=== PATIENT | female | born 1965 | race Hispanic/Latino ===

== ENCOUNTER 2018-03-14 10:05 | Outpatient (CLI) | payer OTHER | END 2018-03-14 10:06 | disposition home or self-care (01) | LOC: BICMAMMO 10:05 | PROVIDERS: ATTEND Nurse Practitioner Family | DX: Z12.31 Encounter for screening mammogram for malignant neoplasm of breast (principal) | CPT/HCPCS: 77063; 77067 ==

== ENCOUNTER 2018-08-23 12:01 | Outpatient (CLI) | payer OTHER | END 2018-08-23 12:02 | disposition home or self-care (01) | LOC: ULT 12:01 | PROVIDERS: ATTEND Family Medicine | DX: R06.01 Orthopnea (principal); I08.1 Rheumatic disorders of both mitral and tricuspid valves | CPT/HCPCS: 93306 ==

== ENCOUNTER 2018-09-04 09:17 | Day surgery (SDC) | payer OTHER ==
[2018-09-03 15:43] VITALS: BMI 46.0
--- NOTE | 2018-09-03 20:51 | HP ---
HISTORY OF PRESENT ILLNESS: This is a 53-year-old female who comes in for EGD and colonoscopy. The patient had a gastric cyst surgery about 5 years ago and lost about 100 pounds. Recently, she has been gaining the weight back again. She complains of change in bowel habits, thin pencil like stools. No hematochezia. She also complains of epigastric discomfort, abdominal bloating, and abdominal swelling. She is s/p gastric sleeve surgery 4 years ago. The patient comes in for EGD because of the above reason and for colonoscopy because of change in bowel habits. ALLERGIES: NONE. SOCIAL HISTORY: Does not smoke or drink alcohol. PAST MEDICAL HISTORY: 1. Obesity, status post gastric sleeve surgery. 2. IBS. 3. Arthritis. PHYSICAL EXAMINATION: GENERAL: She is obese, appears comfortable. VITAL SIGNS: Pulse is 70, blood pressure 130/70. HEENT: Conjunctivae clear. CARDIOVASCULAR: First and second heart sounds heard. LUNGS: Clear to auscultation. ABDOMEN: Soft. No organomegaly. No tenderness. No masses. EXTREMITIES: Reveal no edema. ADMITTING DIAGNOSES: 1. Chronic dyspepsia, abdominal bloating, abdominal swelling. 2. Change in bowel habits. PLAN: EGD and colonoscopy. Job ID: [id number] MTDD
[2018-09-04] MEDS ORDERED: Lidocaine 1% PF 5 ML VIAL ONE (15:52)
[2018-09-04] MEDS ORDERED: PROPOFOL 200 MG/20 ML VIAL ONE (15:52)
--- NOTE | 2018-09-04 19:08 | OP ---
DATE OF PROCEDURE: 09/04/2018 OPERATIVE PROCEDURE: Colonoscopy. PREOPERATIVE DIAGNOSIS: Colon cancer screening, change in bowel habits with thin pencil like stools. POSTOPERATIVE DIAGNOSIS: Normal colonoscopy, except for small hemorrhoids. DESCRIPTION OF PROCEDURE: The patient was placed on her left lateral position and was given sedation by Anesthesia Department. A rectal exam was done before the scope was advanced into the rectum. No lesions felt on rectal exam. A Pentax video colonoscope was introduced into the rectum and advanced all the way to the cecum. The prep is very good. The mucosa appears normal throughout the colon with normal vascular pattern. The appendiceal orifice, ileocecal wall, cecum, no pathology seen. Withdrawal from the cecum, ascending colon, hepatic flexure, no pathology seen. The transverse colon, splenic flexure, descending colon, sigmoid colon, no pathology seen. Retroflexion of scope in the rectum showed small hemorrhoids. Job ID: [id number]
--- NOTE | 2018-09-04 19:54 | OP ---
DATE OF PROCEDURE: 09/04/2018 OPERATIVE PROCEDURE: Esophagogastroduodenoscopy. PREOPERATIVE DIAGNOSES: Abdominal pain, abdominal bloating, early satiety, nausea. POSTOPERATIVE DIAGNOSES: 1. Normal exam. 2. Previous gastric sleeve surgery. DESCRIPTION OF PROCEDURE: The patient was placed on her left lateral position and was given sedation by Anesthesia Department. A Pentax video gastroscope under direct vision passed down the oropharynx to the GE junction into the stomach and subsequently into the descending duodenum. The esophageal mucosa appeared normal. The GE junction, no pathology. The patient has had a previous gastric sleeve surgery. There is some bile reflux and иван in the stomach. The mucosa appeared normal. There was no pathology in the stomach to explain her abdominal bloating, nausea, and dyspepsia. The pylorus was wide open. The scope advanced from the duodenal bulb and descending duodenum, no pathology. The stomach decompressed and the scope removed. DISCHARGE PLANNING: This is a 53-year-old female came to the ED because of the chronic dyspepsia and for colonoscopy because of change in bowel habits, and colon cancer. The colonoscopy . The EGD again showed no pathology to explain patient's symptoms. DISCHARGE RECOMMENDATION: 1. The patient advised about high-fiber diet. 2. May try Metamucil once a day. 3. Will come back to clinic in 2 weeks. Job ID: [id number]
== END 2018-09-04 13:55 | disposition home or self-care (01) ==
LOC: SDC 09:17
PROVIDERS: ATTEND Internal Medicine Gastroenterology
PROC: 0DJD8ZZ Inspection of Lower Intestinal Tract, Via Natural or Artificial Opening Endoscopic (ICD-10-PCS; principal; 2018-09-04)
PROC: 0DJ08ZZ Inspection of Upper Intestinal Tract, Via Natural or Artificial Opening Endoscopic (ICD-10-PCS; principal; 2018-09-04)
DX: R19.4 Change in bowel habit (principal); K64.9 Unspecified hemorrhoids; R10.13 Epigastric pain; M19.90 Unspecified osteoarthritis, unspecified site; K58.9 Irritable bowel syndrome, unspecified; E66.9 Obesity, unspecified; Z68.42 Body mass index [BMI] 45.0-49.9, adult; Z98.84 Bariatric surgery status
CPT/HCPCS: 94640; J2001; J2704; J7620

== ENCOUNTER 2018-10-31 20:30 | Outpatient (CLI) | payer OTHER | END 2018-10-31 20:31 | disposition home or self-care (01) | LOC: SLEEPLAB 20:30 | PROVIDERS: ATTEND Family Medicine | DX: G47.33 Obstructive sleep apnea (adult) (pediatric) (principal); R51 Headache; G47.10 Hypersomnia, unspecified; G47.00 Insomnia, unspecified; E66.9 Obesity, unspecified; Z68.42 Body mass index [BMI] 45.0-49.9, adult | CPT/HCPCS: 95811 ==

== ENCOUNTER 2019-04-15 08:53 | Outpatient (CLI) | payer OTHER ==
--- NOTE | 2019-04-15 10:01 | MMO ---
Bilateral MAMMO Bilat Screen [facility]. CLINICAL HISTORY: Patient is 53 years old and is seen for screening. The patient has no family history of breast cancer. The patient has no personal history of cancer. VIEWS: The views performed were: bilateral craniocaudal with tomosynthesis and bilateral mediolateral oblique with tomosynthesis. FILMS COMPARED: The present examination has been compared to prior imaging studies performed at [facility] on 06/06/2011, 06/27/2012, 07/04/2013 and 03/14/2018. This study has been interpreted with the assistance of computer-aided detection. MAMMOGRAM FINDINGS: The breasts are almost entirely fat. There are intramammary lymph nodes seen in both breasts. There are no suspicious masses, suspicious calcifications, or new areas of architectural distortion. IMPRESSION: THERE IS NO MAMMOGRAPHIC EVIDENCE OF MALIGNANCY. A ROUTINE FOLLOW-UP MAMMOGRAM IN 1 YEAR IS RECOMMENDED. THE RESULTS OF THIS EXAM WERE SENT TO THE PATIENT. ACR BI-RADS Category 2 - Benign finding MAMMOGRAPHY NOTE: 1. A negative mammogram report should not delay a biopsy if a dominant of clinically suspicious mass is present. 2. Approximately 10% to 15% of breast cancers are not detected by mammography. 3. Adenosis and dense breasts may obscure an underlying neoplasm. Reported by: IDANIA LYNNE MD Electonically Signed: [id number]
== END 2019-04-15 08:54 | disposition home or self-care (01) ==
LOC: BICMAMMO 08:53
PROVIDERS: ATTEND Family Medicine
DX: Z12.31 Encounter for screening mammogram for malignant neoplasm of breast (principal)
CPT/HCPCS: 77063; 77067

== ENCOUNTER 2020-04-21 09:40 | Outpatient (CLI) | payer OTHER ==
--- NOTE | 2020-04-21 12:56 | MMO ---
Bilateral MAMMO Bilat Screen [facility]. CLINICAL HISTORY: Patient is 54 years old and is seen for screening. The patient has no family history of breast cancer. The patient has no personal history of cancer. VIEWS: The views performed were: bilateral craniocaudal with tomosynthesis and bilateral mediolateral oblique with tomosynthesis. FILMS COMPARED: The present examination has been compared to prior imaging studies performed at [facility] on 06/27/2012, 07/04/2013, 03/14/2018 and 04/15/2019. This study has been interpreted with the assistance of computer-aided detection. MAMMOGRAM FINDINGS: The breasts are almost entirely fat. Finding 1: There are stable benign appearing calcifications seen in the right breast. Finding 2: There is a stable intramammary lymph node seen in the left breast. There are no suspicious masses, suspicious calcifications, or new areas of architectural distortion. IMPRESSION: THERE IS NO MAMMOGRAPHIC EVIDENCE OF MALIGNANCY. A ROUTINE FOLLOW-UP MAMMOGRAM IN 1 YEAR IS RECOMMENDED. THE RESULTS OF THIS EXAM WERE SENT TO THE PATIENT. ACR BI-RADS Category 2 - Benign finding MAMMOGRAPHY NOTE: 1. A negative mammogram report should not delay a biopsy if a dominant of clinically suspicious mass is present. 2. Approximately 10% to 15% of breast cancers are not detected by mammography. 3. Adenosis and dense breasts may obscure an underlying neoplasm. Reported by: HANSA WILCOX MD Electonically Signed: [id number]
== END 2020-04-21 09:41 | disposition home or self-care (01) ==
LOC: BICMAMMO 09:40
PROVIDERS: ATTEND Family Medicine
DX: Z12.31 Encounter for screening mammogram for malignant neoplasm of breast (principal)
CPT/HCPCS: 77063; 77067

== ENCOUNTER 2020-10-27 07:30 | Outpatient (CLI) | payer OTHER ==
[2020-10-27] MEDS ORDERED: Iopamidol-370 76% 500 ML 1 ML ONE (12:55)
== END 2020-10-27 07:31 | disposition home or self-care (01) ==
LOC: BICCT 07:30
PROVIDERS: ATTEND Family Medicine
DX: R10.9 Unspecified abdominal pain (principal); K44.9 Diaphragmatic hernia without obstruction or gangrene; K21.9 Gastro-esophageal reflux disease without esophagitis
CPT/HCPCS: 74160; Q9967

== ENCOUNTER 2021-04-25 09:00 | Outpatient (CLI) | payer OTHER | END 2021-04-25 09:01 | disposition home or self-care (01) | LOC: BICMAMMO 09:00 | PROVIDERS: ATTEND Family Medicine | DX: Z12.31 Encounter for screening mammogram for malignant neoplasm of breast (principal) | CPT/HCPCS: 77063; 77067 ==

== ENCOUNTER 2021-09-08 08:57 | Outpatient (CLI) | payer OTHER ==
[2021-09-08 19:03] LABS: SARS-CoV-2 PCR by NAA Not Detected (NotDetected)
== END 2021-09-08 08:58 | disposition home or self-care (01) ==
LOC: LABBT 08:57
PROVIDERS: ATTEND Internal Medicine
DX: Z01.812 Encounter for preprocedural laboratory examination (principal); K52.9 Noninfective gastroenteritis and colitis, unspecified; R10.13 Epigastric pain; E66.01 Morbid (severe) obesity due to excess calories; Z98.84 Bariatric surgery status; Z20.822 Contact with and (suspected) exposure to COVID-19
CPT/HCPCS: U0003; U0005

== ENCOUNTER 2022-06-01 06:02 | Day surgery (SDC) | payer BC ==
[2022-05-31 09:29] VITALS: BMI 47.8
[2022-06-01] MEDS ORDERED: PROPOFOL 200 MG/20 ML VIAL ONE (08:29)
== END 2022-06-01 10:26 | disposition home or self-care (01) ==
LOC: SDC 06:02
PROVIDERS: ATTEND Internal Medicine
PROC: 0DJ08ZZ Inspection of Upper Intestinal Tract, Via Natural or Artificial Opening Endoscopic (ICD-10-PCS; principal; 2022-06-01)
PROC: 0DBK8ZX Excision of Ascending Colon, Via Natural or Artificial Opening Endoscopic, Diagnostic (ICD-10-PCS; principal; 2022-06-01)
PROC: 0DBL8ZX Excision of Transverse Colon, Via Natural or Artificial Opening Endoscopic, Diagnostic (ICD-10-PCS; principal; 2022-06-01)
DX: D12.3 Benign neoplasm of transverse colon (principal); K57.30 Diverticulosis of large intestine without perforation or abscess without bleeding; R10.13 Epigastric pain; R14.0 Abdominal distension (gaseous); K21.9 Gastro-esophageal reflux disease without esophagitis; I10 Essential (primary) hypertension; G47.30 Sleep apnea, unspecified; Z80.0 Family history of malignant neoplasm of digestive organs; Z79.899 Other long term (current) drug therapy; Z98.84 Bariatric surgery status
CPT/HCPCS: 88305; J2704

== ENCOUNTER 2023-02-07 14:48 | Outpatient (CLI) | payer BC ==
[2023-02-07 15:38] LABS: #Eosinphils 0.2 10x3/uL (0.0-0.5); #Monocytes 0.5 10x3/uL (0.0-1.1); #Neutrophils 5.2 10x3/uL (1.5-8.4); %Basophils 0.2 % (0.0-2.0); %Eosinophils 2.7 % (0.0-6.0); %Monocytes 6.4 % (0.0-10.0); %Neutrophils 63.3 % (40.0-75.0); Hemoglobin 14.4 g/dL (12.0-15.5); Mean Corpuscular HGB CONC 33.3 g/dL (32.0-36.0); Mean Corpuscular Hemoglobin 30.4 pg (27.0-33.0); Mean Corpuscular Volume 91.5 fl (81.6-98.3); Mean Platelet Volume 10.4 fl (7.4-10.4); Platelet Count 248 10x3/uL (150-450); RBC Distribution Width 12.9 % (11.5-14.5); Red Blood Cell (RBC) Count 4.73 10x6/uL (3.90-5.03); White Blood Cell (WBC) Count 8.2 10x3/uL (3.5-10.5)
[2023-02-07 15:52] LABS: Anion Gap 14 mmol/L (10-20); BUN (Urea Nitrogen) 20 mg/dL (9.8-20.1); Calc. Creatinine Clearance 0 mL/min (70-130); Calcium 9.3 mg/dL (7.8-10.44); Carbon Dioxide 26 mmol/L (22-29); Chloride 106 mmol/L (98-107); Estimated GFR 77; Glucose 95 mg/dL (70-105); Potassium 3.8 mmol/L (3.5-5.1); Sodium 142 mmol/L (136-145)
== END 2023-02-07 14:49 | disposition home or self-care (01) ==
LOC: LABBT 14:48
PROVIDERS: ATTEND Surgery
DX: Z01.818 Encounter for other preprocedural examination (principal); K21.9 Gastro-esophageal reflux disease without esophagitis; K31.1 Adult hypertrophic pyloric stenosis
CPT/HCPCS: 80048; 85025; 93005; 93010

== ENCOUNTER 2023-02-08 13:00 | Inpatient (IN) | payer BC ==
[2023-02-15] MEDS ORDERED: Propofol 500 MG/50 ML VIAL ONE (09:36)
[2023-02-15] MEDS ORDERED: SUGAMMADEX SODIUM 200 MG/2 ML VIAL ONE (09:36)
[2023-02-15] MEDS ORDERED: Ketamine 50 MG/ML (10ML VIAL) ONE (09:36)
[2023-02-15] MEDS ORDERED: Vasopressin 20 UNITS/ML VIAL ONE (09:36)
[2023-02-15] MEDS ORDERED: fentaNYL PF 100 MCG/2 ML SYRINGE ONE (09:36)
[2023-02-15] MEDS ORDERED: Bupivacaine/Epinephrine 0.25% 30 ML VIAL ONE (09:38)
[2023-02-15] MEDS ORDERED: Sodium Chloride 0.9% 100 ML ONE (09:47)
[2023-02-15] MEDS ORDERED: CEFAZOLIN 2 GM VIAL ONE (09:47)
[2023-02-15] MEDS ORDERED: Glycopyrrolate 0.2 MG/ML 5 ML SYRINGE ONE (10:00)
[2023-02-15] MEDS ORDERED: Lidocaine 1% PF 5 ML VIAL ONE (10:00)
[2023-02-15] MEDS ORDERED: Dexamethasone 20 MG/5 ML VIAL ONE (10:00)
[2023-02-15] MEDS ORDERED: Ondansetron PF 4 MG/2 ML Vial ONE (10:00)
[2023-02-15] MEDS ORDERED: Rocuronium Bromide 10 MG/ML (10ML VIAL) ONE (10:00)
[2023-02-15] MEDS ORDERED: PROPOFOL 200 MG/20 ML VIAL ONE (10:00)
[2023-02-15] MEDS ORDERED: Ondansetron HCl/PF 4 MG/2 ML Vial IVP PRN (11:22)
[2023-02-15] MEDS ORDERED: Promethazine HCl 25 MG/ML VIAL IM PRN ×3 (11:22→13:12)
[2023-02-15] MEDS ORDERED: diphenhydrAMINE 25 MG CAP PO PRN (11:25)
[2023-02-15] MEDS ORDERED: Naloxone HCl 0.4 mg/ml Vial IV PRN (11:25)
[2023-02-15] MEDS ORDERED: diphenhydrAMINE 50 MG/ML VIAL IVP PRN ×2 (11:25→13:12)
[2023-02-15] MEDS ORDERED: FENTANYL 500 MCG/10 ML VIAL 2,000 MCG in Sodium Chloride 0.9% 60 ML IV PRN (11:25)
[2023-02-15] MEDS ORDERED: Ondansetron PF 4 MG/2 ML Vial IVP PRN ×2 (11:25→13:12)
[2023-02-15] MEDS ORDERED: diphenhydrAMINE 50 MG/ML VIAL IM PRN (11:25)
[2023-02-15] MEDS ORDERED: Communication Order-Pharmacy FS SCH (11:30)
[2023-02-15] MEDS ORDERED: fentaNYL 50 mcg/mL 1 mL Vial ONE (12:57)
[2023-02-15] MEDS ORDERED: Glucagon 1 MG/ML KIT IM PRN (13:12)
[2023-02-15] MEDS ORDERED: Hydrocodone-Acetamin 15 ML UDCUP PO PRN (13:12)
[2023-02-15] MEDS ORDERED: Dextrose 50% Abboject 50 ML SYRINGE SLOW IVP PRN (13:12)
[2023-02-15] MEDS ORDERED: hydrALAZINE 20 MG/ML VIAL SLOW IVP PRN (13:12)
[2023-02-15] MEDS ORDERED: Ipratropium/Albuterol 3 ML NEB NEB PRN (13:12)
[2023-02-15] MEDS ORDERED: Dextrose 5% in Water 1,000 ML IV PRN (13:12)
[2023-02-15] MEDS: D5 1/2 NS w/20 mEq KCL 1,000 ML IV SCH (20:55)
[2023-02-15 23:33] VITALS: BMI 47.8
[2023-02-16] MEDS: D5 1/2 NS w/20 mEq KCL 1,000 ML IV SCH ×3 (02:12→13:42)
[2023-02-16 05:31] LABS: #Monocytes 0.9 thou/uL (0.11-0.59); #Neutrophils 8.9 thou/uL (1.40-6.50); %Basophils 0.2 % (0.0-1.0); %Lymphocytes 11.3 % (21.0-51.0); %Monocytes 8.4 % (0.0-10.0); %Neutrophils 79.7 % (42.0-75.0); Hemoglobin 14.1 g/dL (12.0-16.0); Mean Corpuscular HGB CONC 32.9 g/dL (32.0-36.0); Mean Corpuscular Hemoglobin 30.6 pg (27.0-31.0); Mean Corpuscular Volume 93.1 fl (78.0-98.0); Mean Platelet Volume 10.8 fL (7.4-10.4); Platelet Count 232 10x3/uL (130-400); RBC Distribution Width 13.1 % (11.5-14.5); Red Blood Cell (RBC) Count 4.61 mill/uL (4.20-5.40); White Blood Cell (WBC) Count 11.2 10x3/uL (4.8-10.8)
[2023-02-16 05:54] LABS: Anion Gap 11 mmol/L (10-20); BUN (Urea Nitrogen) 7 mg/dL (9.8-20.1); Calc. Creatinine Clearance 164 mL/min (70-130); Calcium 9.2 mg/dL (7.8-10.44); Carbon Dioxide 25 mmol/L (22-29); Chloride 107 mmol/L (98-107); Estimated GFR 96; Glucose 125 mg/dL (70-105); Potassium 4.3 mmol/L (3.5-5.1); Sodium 139 mmol/L (136-145)
[2023-02-16] MEDS ORDERED: Losartan 25 MG TAB PO SCH (09:00)
[2023-02-16] MEDS ORDERED: Pantoprazole 40 MG VIAL IVP SCH (09:00)
[2023-02-16 13:00] VITALS: BP 98/61; TEMP 98.3
== END 2023-02-16 15:41 | disposition home or self-care (01) | DRG 327 ==
LOC: SURG A 02-15 06:55
PROVIDERS: ADMIT Surgery; ATTEND Surgery
PROC: 0DB64ZZ Excision of Stomach, Percutaneous Endoscopic Approach (ICD-10-PCS; principal; 2023-02-15)
PROC: 0D1647A Bypass Stomach to Jejunum with Autologous Tissue Substitute, Percutaneous Endoscopic Approach (ICD-10-PCS; 2023-02-15)
PROC: 8E0W4CZ Robotic Assisted Procedure of Trunk Region, Percutaneous Endoscopic Approach (ICD-10-PCS; 2023-02-15)
DX: K21.9 Gastro-esophageal reflux disease without esophagitis (principal); K31.1 Adult hypertrophic pyloric stenosis
CPT/HCPCS: 36415; 80048; 85025; C9113; J1100; J1650; J2405; J2704; J3010; J3480; J3490